=== PATIENT | male | born 2000 | race Caucasian/White ===

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

== ENCOUNTER 2023-05-02 04:10 | Emergency (ER) | payer OTHER ==
[~2023-05-02] VITALS: Ht 180.3 cm; Wt 113.4 kg
[2023-05-02] MEDS ORDERED: MUCINEX DM 30/61 TAB PO (04:43)
== END 2023-05-02 04:47 | disposition home or self-care (01) ==
LOC: ED 04:10
DX: R05.9 Cough, unspecified (principal)

== ENCOUNTER 2023-08-13 19:29 | Emergency (ER) | payer BC ==
[~2023-08-13] VITALS: Ht 1958 cm; Wt 98.0 kg
[~2023-08-13 19:29] MED LIST: MUCINEX DM 30/61 TAB PO
[2023-08-13] MEDS ORDERED: ADDERALL 30 MG30 MG PO (19:55)
[2023-08-13 20:14] LABS: BASO % 0.5 % (0.0-1.0); EOS # 0.2 10*3/uL (0.0-0.4); EOS % 1.9 % (1.0-4.0); HEMATOCRIT 47.5 % (42.0-52.0); LYMPH # 2.7 10*3/uL (1.3-4.4); LYMPH % 33.9 % (27.0-41.0); MEAN CELL VOLUME 88.5 fl (80.0-94.0); MEAN CORPUSCULAR HGB 28.9 pg (27.0-31.0); MEAN CORPUSCULAR HGB CONC 32.6 g/dl (33.0-37.0); MEAN PLATELET VOLUME 8.3 fl (9.6-12.3); MONO # 0.6 10*3/uL (0.1-1.0); MONO % 7.1 % (3.0-9.0); NEUT # 4.5 10*3/uL (2.3-7.9); NEUT % 56.5 % (47.0-73.0); PLATELET COUNT AUTOMATED 351 10*3/uL (130-400); RED BLOOD COUNT 5.37 10*6/uL (4.50-5.90); RED CELL DISTRI WIDTH 11.8 % (0-14.5); WHITE BLOOD COUNT 7.9 10*3/uL (4.8-10.8)
[2023-08-13 20:30] LABS: ALKALINE PHOSPHATASE 64 U/L (46-116); BUN 10 mg/dl (9-23); CHLORIDE 104 mmol/L (98-107); LIPASE 33 U/L (12-53); POTASSIUM 3.7 mmol/L (3.4-5.1); SGPT/ALT 22 U/L (5-49); TOTAL PROTEIN 7.6 gm/dL (6.0-8.0)
[2023-08-13] MEDS ORDERED: SODIUM CHLORIDE 0.9% 1,000 ML IV ONE (21:15)
== END 2023-08-13 21:08 | disposition home or self-care (01) ==
LOC: ED 19:29
PROVIDERS: Emergency Medicine
DX: I10 Essential (primary) hypertension (principal); R42 Dizziness and giddiness; F90.9 Attention-deficit hyperactivity disorder, unspecified type

== ENCOUNTER 2024-02-20 04:42 | Emergency (ER) | payer BC ==
[~2024-02-20] VITALS: Ht 182.8 cm; Wt 104.3 kg
[~2024-02-20 04:42] MED LIST changes: +ADDERALL 30 MG30 MG PO
[2024-02-20] MEDS ORDERED: PENICILLIN VK500 MG PO (05:00)
[2024-02-20] MEDS ORDERED: Ondansetron Hydrochloride 4 MG TAB SL ONE (05:05)
[2024-02-20] MEDS ORDERED: PENICILLIN V POTASSIUM 500 MG TAB PO ONE (05:05)
[2024-02-20] MEDS ORDERED: Acetaminophen/Hydrocodone 5 MG/325 MG TABLET PO ONE (05:05)
== END 2024-02-20 05:12 | disposition home or self-care (01) ==
LOC: ED 04:42
DX: K02.9 Dental caries, unspecified (principal); F90.9 Attention-deficit hyperactivity disorder, unspecified type

== ENCOUNTER 2024-06-12 00:02 | Emergency (ER) | payer OTHER ==
[~2024-06-12] VITALS: Ht 182.8 cm; Wt 81.6 kg
[~2024-06-12 00:02] MED LIST changes: +PENICILLIN VK500 MG PO
[2024-06-12 01:20] LABS: BILIRUBIN Negative (Negative); BLOOD Negative (Negative); CLARITY Clear (Clear); COLOR Yellow (Yellow); GLUCOSE Negative (Negative); KETONE Negative (Negative); LEUKO ESTERASE Negative (Negative); NITRITE Negative (Negative); PH 5.5 (4.5-8.0); UROBILINOGEN 0.2 E.U./dl (0.0-1.0)
[2024-06-12 01:47] LABS: EPITHELIAL CELLS 0-2; WBC 0-2 wbc/hpf (0-5)
[2024-06-12] MEDS ORDERED: ANTIFUNGAL113 GM T (02:29)
== END 2024-06-12 02:38 | disposition home or self-care (01) ==
LOC: ED 00:02
PROVIDERS: Internal Medicine
DX: N48.1 Balanitis (principal); Z79.899 Other long term (current) drug therapy